=== PATIENT | female | born 1990 | race Asian ===

== ENCOUNTER 2019-11-29 10:06 | Emergency (ER) | payer MEDICAID ==
[~2019-11-29] VITALS: Ht 162.6 cm; Wt 63.5 kg
[2019-11-29 10:15] VITALS: Ht 162.6 cm; Wt 63.5 kg
[2019-11-29 11:04] LABS: BASOPHIL % 1.2 % (0-2); PLATELET COUNT 226 x10^3mcL (130-400); RED CELL DISTRIBUTION WIDTH 15.1 % (11.5-14.5)
[2019-11-29 11:35] LABS: CALCIUM 10.1 mg/dL (8.5-10.1); CARBON DIOXIDE 28.8 mmol/L (21-32); CHLORIDE SERUM 98 mmol/L (98-107); CREATININE SERUM 0.9 mg/dL (0.6-1.0); GFR1 > 60 mL/min; GLUCOSE SERUM 128 mg/dL (74-106); POTASSIUM SERUM 3.1 mmol/L (3.5-5.1); SODIUM SERUM 139 mmol/L (136-145)
[2019-11-29 11:40] LABS: ALBUMIN 4.3 g/dL (3.4-5.0); ALKALINE PHOSPHATASE 73 U/L (46-116); ALT/SGPT 73 U/L (14-59); AST/SGOT 34 U/L (15-37)
[2019-11-29 14:57] VITALS: BP 105/72
== END 2019-11-29 13:50 | disposition home or self-care (01) ==
LOC: ED 10:06
PROVIDERS: Emergency Medicine
DX: F43.9 Reaction to severe stress, unspecified (principal); R55 Syncope and collapse; G47.00 Insomnia, unspecified
CPT/HCPCS: 36415; 82962